=== PATIENT | male | born 1970 | race Caucasian/White ===

== ENCOUNTER 2017-06-13 18:13 | Emergency (ER) | payer OTHER ==
[2017-06-13 18:31] VITALS: BP 122/79; PULSE 64; RESP 18; TEMP 98.8; O2SAT 99
[2017-06-13] MEDS ORDERED: TDAP Vaccine 0.5 mL Syr IM ONE (18:37)
[2017-06-13] MEDS ORDERED: Lidocaine 2% Inj (20ml) INFIL STA (18:37)
--- NOTE | 2017-06-13 18:41 | ED PDOC ---
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 Otherwise, pt denies significant wound bleeding, denies left hand weakness, deformity, sensory or vascular deficits. Ambulate to Ed for evaluation, not in any apparent distress. Past Medical History - Provider Review Nursing Documentation Reviewed: Yes - Travel History Have you recently traveled outside [place] w/in the past 3 mons?: No - Past History Past History: No Previous - Infectious Disease Hx of Infectious Diseases: None - Tetanus Immunization Tetanus Immunization: Unknown - Psychiatric Hx Substance Use: No Family/Social History - Physician Review Nursing Documentation Reviewed: Yes Family/Social History: No Known Family HX Smoking Status: Never Smoked Hx Alcohol Use: No Hx Substance Use: No Allergies/Home Meds Allergies/Adverse Reactions: Allergies No Known Allergies Allergy (Verified 06/13/17 18:30) Home Medications: Home Meds Medication Instructions Recorded Confirmed No Known Home Med 06/13/17 06/13/17 Review of Systems - Physician Review All systems were reviewed & negative as marked: Yes - Review of Systems Constitutional: Normal Musculoskeletal: Normal Skin: Laceration Neurological: Normal Endocrine: Normal Hemo/Lymphatic: Normal Psychiatric: Normal Physical Exam Vital Signs Reviewed: Yes Vital Signs Temp Pulse Resp BP Pulse Ox 06/13/17 18:25 98.8 F 64 18 122/79 99 Temperature: Afebrile Blood Pressure: Normal Pulse: Regular Respiratory Rate: Normal Appearance: Positive for: Well-Appearing, Non-Toxic, Comfortable Pain Distress: None Mental Status: Positive for: Alert and Oriented X 3 - Systems Exam Upper Extremity: Present: Normal ROM, NORMAL PULSES, Neurovascularly Intact, Capillary Refill < 2s. No: Deformity Neurological: Present: GCS=15, Motor Func Grossly Intact, Normal Sensory Function, Norm Deep Tendon Reflexes Skin: Present: Warm, Dry, Normal Color, Laceration ((+) 2cm cutaneous linear laceration to left palm overlying 5th MCB. No wound discharges, no wound FB, no tendon or ligament involvement. FAROM of Left hand, no neurovascular deficits.) Psychiatric: Present: Alert, Oriented x 3 Medical Decision Making ED Course and Treatment: 06/13/17 On re-eavl, pt is afebrile, hemodynamicaly stable. Non-toxic. Left hand: laceration repaired w/sutures without difficulty. FAROM, no neurovascular deficits. tetanus given. Pt advised on wound care. ref. to f/u with PMD in 2 days for wound check as need. return to ED at any time if any sign of infection. Pt understand and agrees with discharges. - Medication Orders Current Medication Orders: Discontinued Medications Lidocaine HCl (Lidocaine 2% 20ml Vial) 10 ml INFIL ONCE STA Stop: 06/13/17 18:38 Last Admin: 06/13/17 19:03 Dose: 10 ml Comments: medication administered by BAKARI Samuels Tetanus/Reduced Diphtheria/Acell Pertussis (Boostrix Vaccine Inj) 0.5 ml IM .ONCE ONE Stop: 06/13/17 18:38 Last Admin: 06/13/17 19:02 Dose: 0.5 ml Disposition/Present on Arrival - Present on Arrival Any Indicators Present on Arrival: No History of DVT/PE: No History of Uncontrolled Diabetes: No Urinary Catheter: No History of Decub. Ulcer: No History Surgical Site Infection Following: None - Disposition Have Diagnosis and Disposition been Completed?: Yes Diagnosis: Hand laceration Disposition: HOME/ ROUTINE Disposition Time: 18:44 Patient Plan: Discharge Patient Problems: Current Active Problems Problem Status Onset Hand laceration Acute Condition: STABLE Discharge Instructions (ExitCare): Laceration (ED) Additional Instructions: Keep wound dry for 2-3 days, avoid prolong water exposure Clean wound with soap and water after 2 days Suture removal in 7-10 days return to ED at any time if any sign of infection-fever, chills, wound redness or discharges or any other new changes. Follow up with PMD in 2 days for wound check as need Referrals: [facility] [place] - Follow up with primary Forms: [employer] (Thai) Laceration - Laceration Repair Left palm Wound Length (In cm): 0.79 in Description Of Wound: Linear Wound Cleansed With: Betadine, Sterile Saline Anesthesia: Lidocaine 2% Wound Examination: Irrigated With Saline, No FB With Wound Exploration, No Tendon Injury With Wound Exploration Wound Closure: Suture (#5) Suture Technique And Material Used: Interrupted, Nylon (4-0) Wound Complexity: Simple
== END 2017-06-13 19:15 | disposition home or self-care (01) ==
LOC: ED 18:13
DX: S61.412A Laceration without foreign body of left hand, initial encounter (principal); W26.0XXA Contact with knife, initial encounter; Y92.009 Unspecified place in unspecified non-institutional (private) residence as the place of occurrence of the external cause; Z23 Encounter for immunization

== ENCOUNTER 2017-06-23 15:47 | Emergency (ER) | payer OTHER ==
[2017-06-23 15:50] VITALS: BMI 26.9
[2017-06-23 15:52] VITALS: BP 125/81; PULSE 71; RESP 18; TEMP 98.4; O2SAT 97
--- NOTE | 2017-06-23 16:18 | ED PDOC ---
Arrival/HPI - General Chief Complaint: Suture/Staple Removal Time Seen by Provider: 06/23/17 15:58 Historian: Patient - History of Present Illness Narrative History of Present Illness (Text): 06/23/17 16:16 47yr old male presents today for suture removal to left palm. pt states that 10 days ago he cut himself with knife and had laceration repair. pt denies any complaints. denies fever/chills. denies pain. Time/Duration: Other (laceration 10 days ago) Past Medical History - Provider Review Nursing Documentation Reviewed: Yes - Travel History Have you recently traveled outside [place] w/in the past 3 mons?: No - Past History Past History: No Previous - Infectious Disease Hx of Infectious Diseases: None - Tetanus Immunization Tetanus Immunization: Unknown - Psychiatric Hx Substance Use: No - Anesthesia Hx Anesthesia: No Family/Social History - Physician Review Nursing Documentation Reviewed: Yes Family/Social History: Unknown Family HX Smoking Status: Never Smoked Hx Alcohol Use: No Hx Substance Use: No Allergies/Home Meds Allergies/Adverse Reactions: Allergies No Known Allergies Allergy (Verified 06/13/17 18:30) Home Medications: Home Meds Medication Instructions Recorded Confirmed No Known Home Med 06/13/17 06/23/17 Review of Systems - Review of Systems Constitutional: absent: Fatigue, Fevers Respiratory: absent: SOB, Cough Cardiovascular: absent: Chest Pain, Palpitations Gastrointestinal: absent: Abdominal Pain, Nausea, Vomiting Musculoskeletal: absent: Arthralgias Skin: Laceration Neurological: absent: Headache, Dizziness Physical Exam Vital Signs Reviewed: Yes Vital Signs Temp Pulse Resp BP Pulse Ox 06/23/17 15:51 98.4 F 71 18 125/81 97 Temperature: Afebrile Blood Pressure: Normal Pulse: Regular Respiratory Rate: Normal Appearance: Positive for: Well-Appearing, Non-Toxic, Comfortable Pain Distress: None Mental Status: Positive for: Alert and Oriented X 3 - Systems Exam Head: Present: Atraumatic Mouth: Present: Moist Mucous Membranes Respiratory/Chest: Present: Clear to Auscultation Cardiovascular: Present: Regular Rate and Rhythm Upper Extremity: Present: Normal ROM, NORMAL PULSES, Neurovascularly Intact, Capillary Refill < 2s, Other (left hand; there is a healing linear laceration with [address] no edema, no erythema; no ecchymosis; full rom of hand. sensation and distal pulses intact. ). No: Tenderness, Swelling, Erythema , Deformity Neurological: Present: GCS=15 Skin: Present: Warm, Dry, Normal Color. No: Rashes Psychiatric: Present: Alert, Oriented x 3 Medical Decision Making ED Course and Treatment: 06/23/17 16:22 Patient is nontoxic well-appearing in no distress. Vital signs are stable. Suture/staple removal: 5 sutures removed Wound healing well without signs of infection I advised the patient to keep the wound clean and dry apply bacitracin twice daily and return if symptoms worsen persist or if new symptoms develop Impression: Wound check, suture/staple removal Keep the wound clean and dry Apply bacitracin twice daily Follow up with primary care physician within the next 2 days Return immediately if symptoms worsen persist or if new symptoms develop Disposition/Present on Arrival - Present on Arrival Any Indicators Present on Arrival: No History of DVT/PE: No History of Uncontrolled Diabetes: No Urinary Catheter: No History of Decub. Ulcer: No History Surgical Site Infection Following: None - Disposition Have Diagnosis and Disposition been Completed?: Yes Diagnosis: Visit for suture removal Disposition Time: 16:15 Patient Plan: Discharge Condition: GOOD Additional Instructions: Keep wound clean and dry follow up with the primary care physician within the next 2 days return immediately if symptoms worsen ,persist or if new symptoms develop. Referrals: Lynn Lala MD [Primary Care Provider] - Follow up with primary
== END 2017-06-23 16:31 | disposition home or self-care (01) ==
LOC: ED 15:47
DX: Z48.02 Encounter for removal of sutures (principal)

== ENCOUNTER 2019-01-06 14:37 | Emergency (ER) | payer OTHER ==
[2019-01-06 14:38] VITALS: BMI 26.9
[2019-01-06 14:53] VITALS: RESP 18
[2019-01-06 15:09] LABS: BASO # 0.05 K/mm3 (0.0-2.0); BASO % 0.9 % (0.0-3.0); EOS # 0.3 (0.0-0.7); LYMPH # 2.2 (1.2-3.4); LYMPH % 41.3 % (22.0-35.0); MEAN CELL VOLUME 74.2 fl (80.0-105.0); MEAN CORPUSCULAR HEMOGLOBIN 24.2 pg (25.0-35.0); MEAN CORPUSCULAR HGB CONC 32.6 g/dl (31.0-37.0); MEAN PLATELET VOLUME 10.2 fl (7.0-11.0); MONO # 0.5 (0.1-0.6); MONO % 9.4 % (1.0-6.0); RBC 6.2 10^6/uL (3.5-6.1); RED CELL DISTRIBUTION WIDTH 15.7 % (11.5-14.5); WHITE BLOOD COUNT 5.4 10^3/uL (4.5-11.0)
[2019-01-06 15:21] LABS: INR 1.06; PARTIAL THROMBOPLASTIN TIME 36.4 Seconds (26.9-38.3); PROTHROMBIN TIME 11.8 SECONDS (9.4-12.5)
--- NOTE | 2019-01-06 15:22 | ED PDOC ---
Arrival/HPI - General Chief Complaint: Chest Pain Time Seen by Provider: 01/06/19 14:39 Historian: Patient, Other - History of Present Illness Narrative History of Present Illness (Text): 01/06/19 15:23 48 year old male, with no significant past medical history, presents to emergency department for chest pain that began at around 9:30 this morning. Patient describes pain as radiating from his chest to the rest of his body and states that it makes breathing difficult. Patient notes passing out this morning following the pain. Friend reports similar incident occurred 2 months ago, but patient did not visit a doctor then. He also states he gave him motrin an hour ago and that patient is not in pain currently. Patient denies any fevers, chills, headache, shortness of breath, cough, abdominal pain, nausea, vomiting, diarrhea, back pain, neck pain, or any other complaints. PMD: Time/Duration: Other (9:30 AM) Symptom Onset: Gradual Symptom Course: Improving Activities at Onset: Light Context: Home Past Medical History - Provider Review Nursing Documentation Reviewed: Yes - Past History Past History: No Previous - Infectious Disease Hx of Infectious Diseases: None - Tetanus Immunization Tetanus Immunization: Unknown - Psychiatric Hx Substance Use: No - Anesthesia Hx Anesthesia: No Family/Social History - Physician Review Nursing Documentation Reviewed: Yes Family/Social History: Unknown Family HX Smoking Status: Never Smoked Hx Alcohol Use: No Hx Substance Use: No Allergies/Home Meds Allergies/Adverse Reactions: Allergies No Known Allergies Allergy (Verified 06/13/17 18:30) Home Medications: Home Meds Medication Instructions Recorded Confirmed No Known Home Med 06/13/17 06/23/17 Review of Systems - Physician Review All systems were reviewed & negative as marked: Yes - Review of Systems Constitutional: absent: Fevers Respiratory: absent: Cough Cardiovascular: Chest Pain (radiating, makes it difficult to breathe ) Gastrointestinal: absent: Abdominal Pain, Diarrhea, Nausea, Vomiting Genitourinary Male: absent: Urinary Output Changes Musculoskeletal: absent: Back Pain, Neck Pain Skin: absent: Rash Neurological: Other (passed out ). absent: Headache, Dizziness Physical Exam Vital Signs Reviewed: Yes Vital Signs Temp Pulse Resp BP Pulse Ox 01/06/19 14:38 98.2 F 75 18 125/78 98 Temperature: Afebrile Blood Pressure: Normal Pulse: Regular Respiratory Rate: Normal Appearance: Positive for: Well-Appearing, Non-Toxic, Comfortable Pain Distress: None Mental Status: Positive for: Alert and Oriented X 3 - Systems Exam Head: Present: Atraumatic, Normocephalic Pupils: Present: PERRL Extroacular Muscles: Present: EOMI Conjunctiva: Present: Normal Mouth: Present: Moist Mucous Membranes Neck: Present: Normal Range of Motion Respiratory/Chest: Present: Other (no reproducible chest tenderness ). No: Respiratory Distress, Accessory Muscle Use Cardiovascular: Present: Regular Rate and Rhythm, Normal S1, S2. No: Murmurs Abdomen: No: Tenderness, Distention, Peritoneal Signs Back: Present: Normal Inspection Upper Extremity: Present: Normal Inspection. No: Cyanosis, Edema Lower Extremity: Present: Normal Inspection. No: Edema Neurological: Present: GCS=15, CN II-XII Intact, Speech Normal Skin: Present: Warm, Dry, Normal Color. No: Rashes Psychiatric: Present: Alert, Oriented x 3, Normal Insight, Normal Concentration Medical Decision Making ED Course and Treatment: 01/06/19 15:41 Impression: 48 year old male presents to emergency department for chest pain and episode of fainting this morning. HEART Score: 2 Plan: -- EKG -- Labs -- Chest X-ray -- Aspirin -- Urinalysis -- Reassess and disposition Prior Visits: Notes and results from previous visits were reviewed. Progress Notes: 01/06/19 16:09 Labs reviewed with unremarkable troponin and CXR. Sha - Lab Interpretations Lab Results: 01/06/19 14:50 01/06/19 14:50 Lab Results 01/06/19 14:50: PT 11.8, INR 1.06, APTT 36.4, D-Dimer, Quantitative < 200 01/06/19 14:50: Sodium 137, Potassium 4.1, Chloride 101, Carbon Dioxide 27, Anion Gap 14, BUN 12, Creatinine 0.9, Est GFR ( Amer) > 60, Est GFR (Non- Af Amer) > 60, Random Glucose 85, Calcium 9.1, Magnesium 2.1, Total Bilirubin 0.4, AST 23, ALT 13, Alkaline Phosphatase 40, Troponin I < 0.01, NT-Pro-B Natriuret Pep 48.7, Total Protein 7.9, Albumin 4.4, Globulin 3.5, Albumin /Globulin Ratio 1.3 01/06/19 14:50: WBC 5.4, RBC 6.20 H, Hgb 15.0, Hct 46.0, MCV 74.2 L, MCH 24.2 L, MCHC 32.6, RDW 15.7 H, Plt Count 285, MPV 10.2, Neut % (Auto) 43.4 L, Lymph % (Auto) 41.3 H, [place] % (Auto) 9.4 H, Eos % (Auto) 5.0, Baso % (Auto) 0.9, Lymph # (Auto) 2.2, [place] # (Auto) 0.5, Eos # (Auto) 0.3, Baso # (Auto) 0.05, Absolute Neuts (auto) 2.35 I have reviewed the lab results: Yes - RAD Interpretation Radiology Orders: 01/06/19 14:49 CHEST PORTABLE [RAD] Stat - Medication Orders Current Medication Orders: Discontinued Medications Aspirin (Aspirin Chewable) 324 mg PO STAT STA Stop: 01/06/19 15:20 - Scribe Statement The provider has reviewed the documentation as recorded by the Scribe Lashae Black All medical record entries made by the Scribe were at my direction and personally dictated by me. I have reviewed the chart and agree that the record accurately reflects my personal performance of the history, physical exam, medical decision making, and the department course for this patient. I have also personally directed, reviewed, and agree with the discharge instructions and disposition. Disposition/Present on Arrival - Present on Arrival Any Indicators Present on Arrival: No History of DVT/PE: No History of Uncontrolled Diabetes: No Urinary Catheter: No History of Decub. Ulcer: No History Surgical Site Infection Following: None - Disposition Have Diagnosis and Disposition been Completed?: Yes Diagnosis: Chest pain Disposition: HOME/ ROUTINE Disposition Time: 16:11 Patient Plan: Discharge Condition: STABLE Discharge Instructions (ExitCare): Chest Pain (ED) Print Language: MONGOLIAN Additional Instructions: All medical record entries made by the Scribe were at my direction and pe rsonally dictated by me. I have reviewed the chart and agree that the record accurately reflects my personal performance of the history, physical exam, medical decision making, and the department course for this patient. I have also personally directed, reviewed, and agree with the discharge instructions and disposition. Please follow up with your residential support specialist in 1 week Please return to the Emergency Room if symptoms return or worsen Referrals: Lynn Lala MD [Primary Care Provider] - Follow up with primary Maxine Tavarez MD [Staff Provider] - Follow up with primary Forms: [employer] (Thai)
[2019-01-06 15:24] LABS: ALB/GLOB RATIO 1.3 (1.1-1.8); ALBUMIN 4.4 g/dL (3.0-4.8); ALT/SGPT 13 U/L (7-56); AST/SGOT 23 U/L (17-59); BLOOD UREA NITROGEN 12 mg/dL (7-21); CALCIUM 9.1 mg/dL (8.4-10.5); GFR NON-AFRICAN AMERICAN > 60
[2019-01-06 15:30] LABS: D DIMER < 200 ng/mlDDU (0-243)
[2019-01-06 15:36] LABS: B-TYPE NATRIURETIC PEPTIDE 48.7 pg/mL (0-450); TROPONIN I < 0.01 ng/mL
--- NOTE | 2019-01-06 16:14 | RAD ---
Date of service: 01/06/2019 HISTORY: chest pain COMPARISON: No prior. TECHNIQUE: 1 view obtained. FINDINGS: LUNGS: There is hazy appearance of the left CP angle which could be due to pericardial fat however mild chronic pleural thickening or small effusion cannot be completely excluded. PLEURA: No significant pleural effusion identified, no pneumothorax apparent. CARDIOVASCULAR: Heart appears borderline/mildly enlarged. No aortic atherosclerotic calcification present. No significant pulmonary venous congestion. OSSEOUS STRUCTURES: No significant abnormalities. VISUALIZED UPPER ABDOMEN: Normal. OTHER FINDINGS: None. IMPRESSION: There is hazy appearance of the left CP angle which could be due to pericardial fat however mild chronic pleural thickening or small effusion cannot be completely excluded.
[2019-01-06 16:46] VITALS: BP 111/73; PULSE 71; TEMP 98.3; O2SAT 97
--- NOTE | 2019-01-08 07:20 | CARD ---
APPROVED REPORT Date of service: 01/06/2019 EKG Measurement Heart [id number] <Conclusion> Normal sinus rhythm Normal ECG
== END 2019-01-06 16:14 | disposition home or self-care (01) ==
LOC: ED 14:37
DX: R07.9 Chest pain, unspecified (principal)